=== PATIENT | female | born 1965 | race Caucasian/White ===

== ENCOUNTER 2018-10-29 13:23 | Emergency (ER) | payer BC ==
--- NOTE | 2018-10-29 13:42 | Emergency Department Record ---
History of Present Illness - General Chief complaint: Lower Extremity Pain Stated complaint: RT LEG INJURY Time Seen by Provider: 10/29/18 13:31 Source: Patient Mode of Arrival: Wheelchair Limitations: No limitations - History of Present Illness Initial comments: 52 yo female presents with right ankle pain and swelling. She injured the ankle getting out of her truck on Thursday. She has been ambulatory since then. The pain and swelling have not subsided. No other injuries noted. The patient also states that for the last 2-3 months she has developed fatigue, significant edema to the legs bilaterally. She has a BKA on the left but noted thigh swelling. No chest pain. The edema is new and never has occurred in the past. She denies a history of CAD. She has not seen primary care for about 4 years. She has not been on any antihypertensives for several years. MD Complaint: Joint pain Onset/Timin -: Days(s) Location: Right, Ankle -: Yes Arthralgia, Yes Associated dyspnea Radiation: Proximal Severity scale (1-10): 5 Quality: Aching Consistency: Constant Improves with: Nothing Worsens with: Nothing - Related Data Home Medications Medication Instructions Recorded Confirmed Last Taken Metformin HCl 1 tab PO BID 10/29/18 10/29/18 10/28/18 No Home Med [NO HOME MEDS] 10/29/18 10/29/18 Unknown Allergies Allergy/AdvReac Type Severity Reaction Status Date / Time No Known Drug Allergies Allergy Unverified 05/24/18 08:54 Travel Screening - Travel/Exposure Within Last 30 Days Have you traveled within the last 30 days?: No - Travel/Exposure Within Last Year Have you traveled outside the [place] in the last year?: No - Additonal Travel Details Have you been exposed to anyone with a communicable illness?: No - Travel Symptoms Symptom Screening: None Review of Systems Constitutional: Denies: Chills, Fever, Malaise, Weakness Eyes: Denies: Eye discharge ENT: Denies: Congestion, Throat pain Respiratory: Denies: Cough Cardiovascular: Reports: Edema (4 months of leg swelling). Denies: Chest pain, Palpitations, Syncope Endocrine: Denies: Fatigue Gastrointestinal: Denies: Abdominal pain, Diarrhea, Nausea, Vomiting Genitourinary: Denies: Dysuria Musculoskeletal: Reports: As per HPI, Arthralgia Skin: Reports: Bruising. Denies: Change in color Neurological: Denies: Abnormal gait, Headache, Numbness, Tingling, Weakness Psychiatric: Denies: Anxiety Hematological/Lymphatic: Denies: Blood Clots, Easy bleeding, Easy bruising Past Medical History - SOCIAL HISTORY Smoking Status: Never smoker Alcohol Use: None Drug Use: None - RESPIRATORY Hx Respiratory Disorders: Yes Hx Bronchitis: Yes - CARDIOVASCULAR Hx Cardio Disorders: No - NEURO Hx Neuro Disorders: No - GI Hx GI Disorders: No - Hx Genitourinary Disorders: Yes Hx UTI: Yes - ENDOCRINE Hx Endocrine Disorders: No - MUSCULOSKELETAL Hx Musculoskeletal Disorders: No - PSYCH Hx Psych Problems: No - HEMATOLOGY/ONCOLOGY Hx Hematology/Oncology Disorders: No Family Medical History Any Significant Family History?: No Physical Exam - General General Appearance: Alert, Oriented x3, Cooperative, No acute distress Limitations: No limitations - Head Head exam: Atraumatic, Normocephalic, Normal inspection - Eye Eye exam: Normal appearance. negative: Conjunctival injection - ENT ENT exam: Normal exam Ear exam: Normal external inspection Nasal Exam: Normal inspection Mouth exam: Normal external inspection - Neck Neck exam: Normal inspection - Respiratory Respiratory exam: Normal lung sounds bilaterally. negative: Respiratory distress - Cardiovascular Peripheral Pulses: 2+: Dorsalis Pedis (R) - GI/Abdominal GI/Abdominal exam: Soft, Normal bowel sounds. negative: Tenderness - Rectal Rectal exam: Deferred - Extremities Extremities exam: Full ROM, Joint swelling, Normal capillary refill, Pedal edema (RLE edema to knees, Left BKA patient states left thigh swollen from baseline.), Tenderness. negative: Normal inspection, Calf tenderness Image of Full Body: 1 - diffuse ankle swelling, no abnormal warmth or redness, intact skin, no blisters 2 - Foot is non tender - Back Back exam: Denies: CVA tenderness (R), CVA tenderness (L), Tenderness, Vertebral tenderness - Neurological Neurological exam: Alert, Oriented X3. negative: Motor sensory deficit - Psychiatric Psychiatric exam: Normal affect, Normal mood - Skin Skin exam: Dry, Intact, Normal color, Warm Course Vital Signs 10/29/18 13:27 Temperature 97.9 F Pulse Rate 96 H Respiratory 18 Rate Blood Pressure 247/116 Pulse Ox 97 - Reevaluation(s) Reevaluation #1: The BP was noted be elevated. The patient states she has had about 4 months of swelling She has not seen her PCP in 4 years. She states she self started Metformin recently but she does not check her blood sugars. 10/29/18 13:46 10/29/18 14:32 CBC reviewed Hgb is 8.0, MCV is 83 Normal platelets and WBC 10/29/18 14:52 Glucose is 212 The CMP is otherwise normal with normal renal function The BNP is 1230 10/29/18 14:52 10/29/18 14:54 XR of the ankle demonstrates fragmentation of the distal anterior tibia, no other fracture noted. Predominantly degenerative in nature. Fracture can not be completely excluded. She will be supported with a DonJoy and follow up with her orthopedist 10/29/18 15:12 Troponin is indeterminate at 0.035 10/29/18 15:22 EKG 15:12 sinus rhythm rate 93, intervals normal, axis Left, poor R wave progression, no old, possible old anterior infarct 10/29/18 16:08 CXR enlarged heart silhouette with prominent pulmonary vascular 10/29/18 16:32 Dr Grewal at [facility] accepts the patient for transfer to a step down bed for further work up of the findings in the [facility] ED 10/29/18 18:34 Current BP is improved to 167/97 Medical Decision Making - Lab Data Result diagrams: 10/29/18 14:10 10/29/18 14:10 Disposition Disposition: Transfer Clinical Impression: Elevated brain natriuretic peptide (BNP) level, Elevated troponin, Avulsion injury of ankle region, Edema, Congestive heart failure, Hypertensive urgency Disposition: Acute Care Hospital Transfer Transfer To: [facility] Reason For Transfer: New onset heart failure Accepting Physician: Carmina Time Discussed w/Accepting Physician: 16:33 Condition: (3) Guarded Additional Instructions: Call your family doctor for a recheck this next week You blood pressure was elevated in the ER and will need to be rechecked. Continue your medications as directed Forms: Patient Portal Access Time of Disposition: 16:18 Quality - Quality Measures Quality Measures: N/A - Blood Pressure Screening Does Patient Have Any of the Following: Active Dx of HTN Blood Pressure Classification: Hypertensive Reading Systolic Measurement: 247 Diastolic Measurement: 116 Screening for High Blood Pressure: Patient Exclusion, Hx of HTN [G9744]
[2018-10-29 14:20] LABS: BASO % 0.3 % (0-6); EOS % 1.1 % (0-6); LYMPH % 9.9 % (16-45); MEAN CELL VOLUME 83.9 fl (81-97); MEAN CORPUSCULAR HEMOGLOBIN 25.8 pg (27-33); MEAN CORPUSCULAR HGB CONC 30.8 g/dl (32-36); MEAN PLATELET VOLUME 9.6 fl (7.4-10.4); MONO % 11.7 % (0-9); PLATELET COUNT 314 K/uL (130-400); RED CELL DISTRIBUTION WIDTH 14.1 % (11.5-14.5)
[2018-10-29 14:30] LABS: BLOOD UREA NITROGEN 23 mg/dL (6-20); CREATININE 0.9 mg/dL (0.5-0.9); EST GLOMERULAR FILTRATION RATE > 60 mL/min; TOTAL PROTEIN 6.5 g/dL (6.6-8.7)
[2018-10-29 14:32] LABS: GLUCOSE,RANDOM 212 mg/dL (74-109)
[2018-10-29 14:35] LABS: ALBUMIN 3.2 g/dL (4.0-5.0); ALKALINE PHOSPHATASE 141 U/L (45-87); ALT/SGPT 12 U/L (<33); AST/SGOT 12 U/L (10.0-35.0)
[2018-10-29 14:45] LABS: THYROID STIMULATING HORMONE 1.16 uIU/mL (0.270-4.20)
[2018-10-29] MEDS ORDERED: ASPIRIN 81 MG CHEWABLE TABLET PO ONE (15:12)
[2018-10-29] MEDS ORDERED: FUROSEMIDE IV 20MG/2ML VIAL IVP ONE (16:09)
[2018-10-29] MEDS ORDERED: CLONIDINE HCL 0.1 MG TABLET PO ONE (16:17)
--- NOTE | 2018-10-31 08:29 | RADIOLOGY REPORT ---
DATE: 10/29/2018. EXAM: RIGHT ANKLE RADIOGRAPHS. HISTORY: Fall with right ankle pain and swelling. TECHNIQUE: Three views of the right ankle. COMPARISON: None. FINDINGS: Extensive, diffuse ankle soft tissue swelling with suggestion of joint effusion. No discrete, lucent fracture line. Age-indeterminate fragmentation at the anterior tibial plafond and at the tips of the lateral and medial malleoli. Adjacent amorphous calcific densities in these regions, may relate to the joint space. 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 Chronic-appearing deformity of the distal tibial metaphysis with associated cortical thickening. Talonavicular and dorsal intertarsal osteophytes. Plantar calcaneal enthesophyte. IMPRESSION: 1. DIFFUSE ANKLE SOFT TISSUE SWELLING WITH POSSIBLE JOINT EFFUSION. 2. CALCIFIC FRAGMENTATION AT THE ANTERIOR TIBIAL PLAFOND WELL THE TIPS OF THE LATERAL AND MEDIAL MALLEOLI WHICH MAY REPRESENT AGE-INDETERMINATE, POSTTRAUMATIC INJURIES VERSUS FRAGMENTATION RELATED TO ADVANCED TIBIOTALAR ARTHROSIS. 3. OTHERWISE NO DEFINITE ACUTE OSSEOUS FINDINGS. 4. THERE IS CHRONIC-APPEARING DEFORMITY OF THE DISTAL TIBIAL METAPHYSIS WITH ASSOCIATED CORTICAL THICKENING. CORRELATION FOR HISTORY OF PREVIOUS TRAUMA IS RECOMMENDED. JOB NUMBER: [id number] MTDD
--- NOTE | 2018-10-31 10:13 | RADIOLOGY REPORT ---
DATE: 10/29/2018. EXAM: TWO-VIEW CHEST RADIOGRAPH. HISTORY: Shortness of breath and edema. TECHNIQUE: Two views of the chest. COMPARISON: None. FINDINGS: Cardiac silhouette appears borderline enlarged. Mild prominence of the central pulmonary vasculature. There is asymmetrical elevation of the right hemidiaphragm. No focal pulmonary consolidation. No pleural effusion or pneumothorax. IMPRESSION: 1. BORDERLINE CARDIAC SILHOUETTE ENLARGEMENT. MILD PROMINENCE OF THE CENTRAL PULMONARY VASCULATURE. 2. NO ACUTE/FOCAL LUNG FINDINGS. JOB [facility]BER: [id number] [facility]
== END 2018-10-30 00:54 | disposition short-term general hospital (02) ==
LOC: ER 13:23
DX: S82.391A Other fracture of lower end of right tibia, initial encounter for closed fracture (principal); I16.0 Hypertensive urgency; I11.0 Hypertensive heart disease with heart failure; I50.9 Heart failure, unspecified; R79.89 Other specified abnormal findings of blood chemistry; R06.02 Shortness of breath; R53.83 Other fatigue; R06.00 Dyspnea, unspecified; I25.10 Atherosclerotic heart disease of native coronary artery without angina pectoris; Z89.512 Acquired absence of left leg below knee; W17.89XA Other fall from one level to another, initial encounter
CPT/HCPCS: 71046; 80053; 83880; 84443; 84484; 85025; 93005; 93010; 96374; 99285; J1940